=== PATIENT | male | born 1965 | race Caucasian/White ===

== ENCOUNTER 2025-09-25 06:40 | Day surgery (SDC) | payer MEDICAID, SELFPAY ==
--- NOTE | 2025-09-23 13:52 | EKG_ITS ---
[facility] Test Date: 2025-09-23 Pat Name: ITZ ROTHMAN Department: Room: - Gender: Male Technical Artist: JACOBO : [id number] Requested By: Carlos Alberto Briggs Order Number: [id number] Reading MD: Carlos Alberto Briggs Measurements Intervals [place] Rate: 69 P: 46 OR: 121 QRS: 55 QRSD: 90 T: 62 QT: 396 QTc: 425 Interpretive Statements SINUS RHYTHM No previous ECG available for comparison /[id number]
[2025-09-23 15:52] LABS: Alanine Aminotransferase 35 U/L (10-49); Albumin, Serum 5.0 gm/dL (3.4-4.8); Albumin/Globulin Ratio 2.6 (1.2-2.2); Alkaline Phosphatase 67 U/L (46-116); Anion Gap 6 (7-16); Aspartate Amino Transferase 28 U/L (0-34); BUN/Creatinine Ratio 13 Ratio (12-20); Bilirubin,Total 0.3 mg/dL (0.3-1.2); Blood Urea Nitrogen 16 mg/dL (9-23); Calcium 9.6 mg/dL (8.3-10.6); Calcium (Corrected) 9.6 mg/dL (8.5-10.1); Carbon Dioxide 31.4 mMol/L (20.0-31.0); Chloride 107 mMol/L (98-107); Creatinine (Component) 1.2 mg/dL (0.6-1.3); Globulin 1.9 gm/dL (2.3-3.5); Glucose 99 mg/dL (74-106); Osmolality,Calculated 288 (275-295); Potassium 4.2 mMol/L (3.4-5.1); Sodium 144 mMol/L (136-145); Total Protein 6.9 gm/dL (5.7-8.2); eGFR > 60 See Note
[2025-09-24 13:54] VITALS: BMI 32.5
[2025-09-25 07:12] VITALS: BP 158/89; PULSE 76; RESP 18; TEMP 36.7; O2SAT 98; BMI 30.4
[2025-09-25] MEDS: RINGERS LACTATED 1000 ML 1,000 ML 20 ML IV (07:42)
[2025-09-25 07:45] VITALS: BP 130/70; PULSE 70; RESP 14; O2SAT 96
[2025-09-25 08:02] VITALS: BP 141/81; PULSE 82; RESP 18; TEMP 36.6; O2SAT 97
[2025-09-25 08:12] VITALS: BP 137/80; PULSE 73; RESP 12; O2SAT 94
[2025-09-25 08:22] VITALS: BP 115/82; PULSE 74; RESP 12; O2SAT 94
[2025-09-25 08:38] VITALS: BP 122/70; PULSE 67; RESP 12; TEMP 36.2; O2SAT 97
== END 2025-09-25 08:38 | disposition home or self-care (01) ==
PROVIDERS: Anesthesiology; PCP Family Medicine; Referring Provider Surgery; Visit Provider Surgery
PROC: 0DBE8ZX Excision of Large Intestine, Via Natural or Artificial Opening Endoscopic, Diagnostic (ICD-10-PCS; CPT 45380; principal; 2025-09-25 07:30)
DX: Z12.11 Encounter for screening for malignant neoplasm of colon (principal); D12.4 Benign neoplasm of descending colon; K64.1 Second degree hemorrhoids; K57.30 Diverticulosis of large intestine without perforation or abscess without bleeding; Z01.810 Encounter for preprocedural cardiovascular examination; M19.90 Unspecified osteoarthritis, unspecified site; J45.909 Unspecified asthma, uncomplicated; G89.29 Other chronic pain; M54.9 Dorsalgia, unspecified; B19.20 Unspecified viral hepatitis C without hepatic coma
CPT/HCPCS: 45380; 36415; 80053; 93005; A4649; J7120